=== PATIENT | female | born 1965 | race Caucasian/White ===

== ENCOUNTER 2022-01-10 13:01 | Emergency (ER) | payer OTHER ==
[~2022-01-10 13:01] MED LIST: AMOXICILLIN875 MG PO; NAPROSYN375 MG PO
[2022-01-10 14:20] LABS: BASOPHIL 0.6 % (0-2); EOSINOPHIL 2.8 % (0-5); HCT 41.7 % (37.0-47.0); HGB 14.4 g/dl (12.5-16.0); LYMPHOCYTE 32.4 % (15-48); MCH 31.9 pg (25.0-31.0); MCHC 34.5 g/dL (32.0-36.0); MCV 92.3 fL (78.0-100.0); MONOCYTE 5.9 % (0-12); MPV 9.4 fL (6.0-9.5); NRBC 0; PLT 247 K/uL (150-400); RBC 4.52 M/uL (4.20-5.40); RDW 13.6 % (11.5-14.0); WBC 6.7 K/uL (4.0-10.5)
[2022-01-10 14:32] LABS: ALBUMIN 3.9 g/dL (3.4-5.0); BILIRUBIN - TOTAL 0.3 mg/dL (0.2-1.0); BUN/CREAT RATIO (CALC) 16.4 RATIO; CREATININE 0.67 mg/dL (0.51-0.95); GLOBULIN (CALCULATION) 3.4 g/dL; POTASSIUM 3.1 mmol/L (3.5-5.1); TOTAL PROTEIN 7.3 g/dL (6.4-8.2)
[2022-01-10] MEDS ORDERED: PROTONIX 40MG T40 MG PO (16:19)
== END 2022-01-10 17:02 | disposition home or self-care (01) ==
LOC: FER 13:01
PROVIDERS: Emergency Medicine
DX: R07.89 Other chest pain (principal); F17.210 Nicotine dependence, cigarettes, uncomplicated; Z28.310 Unvaccinated for COVID-19
CPT/HCPCS: 36415; 71045; 80053; 83880; 84484; 85025; 85379; 93005